=== PATIENT | male | born 2000 | race Caucasian/White ===

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

== ENCOUNTER 2023-06-23 08:12 | Outpatient (CLI) | payer BC | END 2023-06-23 08:13 | disposition home or self-care (01) | LOC: RAD 08:12 | PROVIDERS: ATTEND Internal Medicine Critical Care Medicine | DX: R06.00 Dyspnea, unspecified (principal) | CPT/HCPCS: 71046 ==